=== PATIENT | female | born 1990 | race Caucasian/White ===

== ENCOUNTER 2018-07-16 19:57 | Emergency (ER) | payer BC ==
[~2018-07-16] VITALS: Ht 185.4 cm; Wt 135.4 kg
[~2018-07-16 19:57] MED LIST: ATOR10TA65 PO; CHOL200056 PO; FISH1CAP PO; FURO20TA3 PO; IBUP-1542 PO; LISI-471 PO
[2018-07-16 20:20] VITALS: BP 157/86; Ht 185.4 cm; Wt 135.4 kg
[2018-07-16] MEDS ORDERED: IPRATROPIUM (NEB) 0.5 MG/2.5 ML AMP NEB STA (22:16)
[2018-07-16] MEDS ORDERED: ALBUTEROL 0.083% (NEB) 2.5 MG/3 ML AMP NEB STA (22:16)
[2018-07-16] MEDS ORDERED: METHYLPREDNISOLONE 125 MG INJ IM STA (22:16)
[2018-07-16] MEDS ORDERED: ACETAMINOPHEN 500 MG TAB PO STA (22:28)
--- NOTE | 2018-07-16 22:28 | ERD ---
ER Documentation Chief Complaint Chief Complaint Fever, wheezing, cough, VARNER, Sent by Urgent care for UTI HPI This is a 27-year-old female with a history of asthma, chronic UTIs, hypertensio n who presents ED with complaints of cough times 4 days. Patient was seen in urgent care prior to coming to the ED and was told that she is a UTI and to report to the ER. Patient does not have any urinary symptoms. Patient states that she has chronic UTIs and she takes Keflex every day for UTI. Admits to fever, sputum production, headache and wheezing. Admits to some shortness of breath with prolonged coughing spells. Denies dysuria, hematuria, vaginal pain, vaginal discharge, nausea, vomiting, diarrhea, constipation, lower pelvic discomfort, low back pain, ear pain, sore throat, trouble breathing and all other symptoms. ROS All systems reviewed and are negative except as per history of present illness. Medications Home Meds Active Scripts Ciprofloxacin Hcl* (Ciprofloxacin Hcl*) 500 Mg Tablet, 500 MG PO BID for 7 Days, TAB Prov:RHEA GAO PA-C 07/16/18 Dextromethorphan Hb-Promethazine Hcl* (Promethazine DM* Syrup) 473 Ml Syrup, 5 ML PO Q6 PRN for COUGH for 5 Days, ML Prov:RHEA GAO PA-C 07/16/18 Methylprednisolone* (Medrol* DOSE PACK) 4 Mg/Dose-Pack Tab.ds.pk, 4 MG PO . DIRECTED for 5 Days, PACKET Prov:RHEA GAO PA-C 07/16/18 Albuterol Sulfate* (Proair HFA*) 8.5 Gm Hfa.aer.ad, 2 PUFF INH Q4, #1 INHALER Prov:RHEA GAO PA-C 07/16/18 Albuterol Sulfate* (Albuterol Sulfate* Neb) 0.083%-3 Ml Neb, 2.5 MG NEB Q4 PRN for SHORTNESS OF BREATH, #30 EA Prov:RHEA GAO PA-C 07/16/18 Ibuprofen* (Motrin*) 600 Mg Tab, 600 MG PO Q6H PRN for PAIN AND OR ELEVATED TEMP, #15 TAB Take with food Prov:ERENDIRA CHAND MD 01/22/18 Reported Medications Lisinopril* (Lisinopril*) 20 Mg Tablet, 20 MG PO DAILY, #30 TAB 01/22/18 Atorvastatin Calcium (Atorvastatin Calcium) 10 Mg Tablet, 10 MG PO QHS, #30 TAB 01/22/18 Fish Oil/Dha/Epa (FISH OIL 1,200 MG FISH OIL) 1 Each Capsule, 1 EACH PO BID, CAP 01/22/18 Cholecalciferol (Vitamin D3) (Vitamin D-3) 2,000 Unit Tablet, 2000 UNIT PO DAILY, TAB 01/22/18 Furosemide* (Furosemide*) 20 Mg Tablet, 20 MG PO DAILY, #60 TAB 01/22/18 Allergies Allergies: Coded Allergies: No Known Allergy (Unverified , 01/22/18) PMhx/Soc Anesthesia Reaction: No Hx Neurological Disorder: No Hx Respiratory Disorders: No Hx Cardiac Disorders: Yes (High cholesterol, HTN) Hx Psychiatric Problems: No Hx Miscellaneous Medical Probl: Yes (Pulmonary embolism in 2017) Hx Alcohol Use: No Hx Substance Use: No Hx Tobacco Use: No Smoking Status: Never smoker FmHx Family History: No diabetes Physical Exam Vitals Vital Signs Date Temp Pulse Resp B/P (MAP) Pulse Ox O2 O2 Flow FiO2 Time Delivery Rate 07/16/18 83 22 98 21 22:45 07/16/18 100.3 93 18 157/86 98 20:20 (109) Physical Exam Physical Exam Vitals signs: Reviewed by me. General: Well developed, well nourished, in no acute distress. Patient is awake and alert. Head: Normocephalic, atraumatic. Eyes: Normal conjunctiva, Pupils PERRLA, EOM intact grossly ENT: Pharynx is clear, Moist mucous membranes, external ears, nose and mouth normal Neck: Supple, no masses, lymphadenopathy or JVD Respiratory: Expiratory wheezing heard bilaterally, no, rhonchi, rales, no distress, no retractions, no labored breathing Cardiovascular: RRR, no murmurs, rubs, or gallops Abdominal: Soft, obese, no peritoneal signs, no rigidity, no surgical abdomen, bowel sounds present all 4 quadrants, nontender light deep palpation all 4 quadrants, no rebound tenderness, McBurney's point nontender, Back: No midline tenderness. No flank tenderness Neurologic: Alert and oriented, moving all extremities, normal speech, no focal weakness, no cerebellar signs. Normal mentation Skin: warm and dry, No rash Psych: Normal mood Results 24 hrs Laboratory Tests Test 07/16/18 22:21 07/16/18 22:39 Urine Color YELLOW Urine Clarity SLIGHTLY CLOUDY Urine pH 6.0 Urine Specific [place] 1.014 Urine Ketones NEGATIVE mg/dL Urine Nitrite NEGATIVE mg/dL Urine Bilirubin NEGATIVE mg/dL Urine Urobilinogen NEGATIVE mg/dL Urine Leukocyte Esterase 1+ Gisella/ul Urine Microscopic RBC 7 /HPF Urine Microscopic WBC 23 /HPF Urine Squamous Epithelial Cells MODERATE /HPF Urine Bacteria FEW /HPF Urine Hemoglobin 1+ mg/dL Urine Glucose NEGATIVE mg/dL Urine Total Protein 2+ mg/dl POC Beta HCG, Qualitative NEGATIVE Current Medications Medications Dose Sig/Lee Start Time Status Last (Trade) Ordered Route PRN Stop Time Admin Dose Reason Admin Albuterol 5 mg ONCE STAT 07/16/18 DC 07/16/18 (Proventil NEB 22:16 07/16/18 22:44 0.083% (Neb)) 22:20 Ipratropium 0.5 mg ONCE STAT 07/16/18 DC 07/16/18 [place] NEB 22:16 07/16/18 22:44 (Atrovent 22:20 0.02% (Neb)) 125 mg ONCE STAT 07/16/18 DC 07/16/18 Methylprednis IM 22:16 07/16/18 22:37 olone Sodium 22:20 Succinate (Solu-Medrol) 1,000 mg ONCE STAT 07/16/18 DC 07/16/18 Acetaminophen PO 22:28 07/16/18 22:39 (Tylenol 22:29 Tab) Ibuprofen 600 mg ONCE ONCE 07/16/18 DC 07/16/18 (Motrin) PO 22:30 07/16/18 22:39 22:31 Promethazine 5 ml ONCE ONCE 07/16/18 DC 07/16/18 HCl/ PO 22:30 07/16/18 22:38 Dextromethorp 22:31 cohen (Phenergan-Dm ) Ceftriaxone 50 ml @ ONCE ONCE 07/16/18 DC Sodium 100 mls/hr IVPB 23:30 07/16/18 23:30 Ceftriaxone 1 gm ONCE ONCE 07/16/18 07/16/18 Sodium IM 23:30 07/16/18 23:22 (Rocephin) 23:31 Procedures/MDM EKG, MONITORS, & DIAGNOSTIC IMAGING: [facility] [address] [address] Radiology Main Line: [phone] DIAGNOSTIC IMAGING REPORT Patient: KAROLINA DOMINIQUE : 1990 Age: 27 Sex: F MR #: [id number] DOS: 07/16/18 2216 Ordering MD: RHEA GAO PA-C Location: [facility] Room/Bed: PROCEDURE: XR Chest. CLINICAL INDICATION: Cough TECHNIQUE: Single frontal view of the chest was obtained COMPARISON: CR CHEST 08/01/2017 FINDINGS: The heart and mediastinum are within normal limits. The lungs are clear. There is no pleural effusion or pneumothorax. RPTAT: AA IMPRESSION: No acute disease. .Jake Jimenez MD, MD Date Time Electronically viewed and signed by .Jake Jimenez MD, MD on 07/16/2018 22:53 .S/ CC: RHEA GAO PA-C [phone] LAB INTERPRETATION: Urine negative Urinalysis remarkable for 1+ leukocyte esterase, 7 RBCs, 23 microscopic WBCs urine culture pending flu neg ER COURSE: The patient was given IM Solu-Medrol, breathing treatment, Tylenol The medication was well tolerated and the patient reports improvement in symptoms. The patient was stable throughout ED course. I kept the patient and/or family informed of laboratory and diagnostic imaging results throughout the emergency room course. The patient was promptly evaluated and a treatment plan was devised based on H&P and other data. This plan was discussed with the patient who agreed and had no further questions or concerns prior to discharge. MEDICAL DECISION MAKING: This is a 27-year-old female with a history of hypertension, asthma and chronic UTIs who presents ED with complaints of fever and cough times 4 days. Patient was sent here from urgent care for UTI. Patient does not have any urinary complaints. Patient came with copies of urgent care urinalysis which showed 1+ blood but no leukocyte or nitrites. Repeated urinalysis in the emergency department and it shows 1+ leukocyte esterase, 23 WBCs and 7 RBCs. Patient states that she takes Keflex chronically for UTI. Given patient's fever will treat her to cover for pyelonephritis. Patient was given 1 g of Rocephin in the emergency department. Patient will be sent home with ciprofloxacin for UTI and I will also send urine for culture. As for patient's cough -symptoms are most likely consistent with acute bronchitis, likely caused from a viral infection. Patient was given breathing treatment in the emergency department and reports feeling better. Lung sounds have improved after breathing treatment. Low suspicion for pneumonia, as lung sounds are clear at this time. Oxygen saturation is normal and patient does not have any respiratory distress. xray unremarkable. Low suspicion for other cardiopulmonary emergency such as pulmonary embolism, pneumothorax, tension pneumothorax, pleural effusion, pneumothorax, CHF, aortic aneurysm or other cardiopulmonary emergencies. No evidence of sepsis. Patient's vitals are stable he can be managed with close outpatient follow-up. Advised patient to follow-up with primary care in the next 48 hours. Return to ED with any worsening symptoms DISPOSITION PLAN: We discussed follow up with the patient's primary care doctor within 24 to 48 hours. Patient counseled regarding my diagnostic impression and care plan. Prior to discharge all questions answered. Pt agrees with treatment plan and understands strict return precautions. Precautionary instructions provided including instructions to return to the ER if not improving or for any worsening or changing symptoms or concerns. SPECIALIST FOLLOW UP RECOMMENDED: None Patient has been advised to follow up with primary care in 1-2 days. Disclaimer: Inadvertent spelling and grammatical errors are likely due to EHR/dictation software use and do not reflect on the overall quality of patient care. Also, please note that the electronic time recorded on this note does not necessarily reflect the actual time of the patient encounter. Departure Diagnosis: Primary Impression: UTI (urinary tract infection) Urinary tract infection type: site unspecified Hematuria presence: with hematuria Qualified Codes: N39.0 - Urinary tract infection, site not specified; R31.9 - Hematuria, unspecified Additional Impression: Acute bronchitis Bronchitis organism: unspecified organism Qualified Codes: J20.9 - Acute bronchitis, unspecified Condition: Stable Patient Instructions: Bronchitis With Wheezing (Adult), Pyelonephritis, Female (Adult), Understanding Urinary Tract Infections (UTIs) Referrals: [facility] Additional Instructions: Patient advised to return to the ED immediately for new or worsening symptoms. Patient advised to follow up with primary care provider in the next 24-48 hours. Patient verbalized understanding and agrees with treatment plan and course of action. If patient has no primary care they may follow up with one of the community clinics listed on the following page or one of the options listed below [facility] + [facility] [address] [place] [id number] or [facility] [address] [place] [address] or [facility] [address] [place] [address] RHEA GAO PA-C Jul 16, 2018 22:28
[2018-07-16] MEDS ORDERED: IBUPROFEN 600 MG TAB PO ONE (22:30)
[2018-07-16] MEDS ORDERED: PROMETHAZINE/DM (CUP) PO ONE (22:30)
[2018-07-16] MEDS ORDERED: ALBU8.5H8 INH (23:22)
[2018-07-16] MEDS ORDERED: MED4DP PO (23:22)
[2018-07-16] MEDS ORDERED: ALBU2.5V3 NEB (23:22)
[2018-07-16] MEDS ORDERED: D-ME473S2 PO (23:22)
[2018-07-16] MEDS ORDERED: CIPR500T4 PO (23:22)
[2018-07-16] MEDS ORDERED: CEFTRIAXONE 1 GM INJ IM ONE (23:30)
[2018-07-16] MEDS ORDERED: CEFTRIAXONE 1 GM/50 ML (PMX) 50 ML IVPB ONE (23:30)
[2018-07-16 23:31] VITALS: PULSE 85; RESP 20
== END 2018-07-16 23:46 | disposition home or self-care (01) ==
LOC: FTE 19:57
DX: N39.0 Urinary tract infection, site not specified (principal); J20.9 Acute bronchitis, unspecified; I10 Essential (primary) hypertension; J45.901 Unspecified asthma with (acute) exacerbation; R05 Cough
CPT/HCPCS: 71045; 81001; 81025; 87086; 87400; 94664; 96372; J0696; J2930; Z7502; Z7610